=== PATIENT | male | born 1950 | race Hispanic/Latino ===

== ENCOUNTER 2017-03-11 13:44 | Emergency (ER) | payer OTHER ==
[2017-03-11 13:55] VITALS: BMI 25.1
[2017-03-11 13:56] VITALS: RESP 18; TEMP 98.3
[2017-03-11 14:14] VITALS: BP 110/89; PULSE 95
[2017-03-11 14:16] VITALS: O2SAT 96
--- NOTE | 2017-03-11 14:16 | C.PDOC ---
History Of Present Illness 67 y/o male presents to ED for evaluation after vomiting x1 time yesterday. Patient states yesterday he opened a can of pineapple juice that tasted acidic and was noted black on the inside of can. Patient denies abdominal pain, diarrhea, fever, chills. He has no weakness, visual disturbance, trouble swallowing, body aches or paralysis. He woke up this morning perfectly fine but came to ED to make sure everything is okay. No other complaints at this time. Time Seen by Provider: 03/11/17 14:06 Chief Complaint (Nursing): Abdominal Pain History Per: Patient History/Exam Limitations: no limitations Onset/Duration Of Symptoms: Days Current Symptoms Are (Timing): Still Present Context: Food Associated Symptoms: denies: Nausea, Vomiting, Diarrhea Past Medical History Reviewed: Historical Data, Nursing Documentation, Vital Signs Vital Signs: Last Vital Signs Temp 98.3 F 03/11/17 13:55 Pulse 95 H 03/11/17 14:11 Resp 18 03/11/17 14:11 BP 110/89 03/11/17 14:11 Pulse Ox 96 03/11/17 14:18 - Medical History PMH: HTN Family History: States: Unknown Family Hx - Social History Hx Alcohol Use: Yes Hx Substance Use: No - Immunization History Hx Tetanus Toxoid Vaccination: No Hx Influenza Vaccination: No Hx Pneumococcal Vaccination: No Review Of Systems Except As Marked, All Systems Reviewed And Found Negative. Constitutional: Negative for: Fever, Chills Gastrointestinal: Positive for: Vomiting. Negative for: Nausea, Abdominal Pain , Diarrhea Skin: Negative for: Rash Physical Exam - Physical Exam Appears: Non-toxic, No Acute Distress Skin: Normal Color, Warm Head: Atraumatic, Normacephalic Eye(s): bilateral: Normal Inspection, PERRL, EOMI Oral Mucosa: Moist, No Drooling Throat: Normal Neck: Normal, Normal ROM Chest: Symmetrical Cardiovascular: Rhythm Regular, No Murmur Respiratory: Normal Breath Sounds, No Rales, No Rhonchi, No Wheezing Gastrointestinal/Abdominal: Soft, No Tenderness, No Guarding, No Rebound Extremity: Normal ROM, Capillary Refill (<2 seconds) Neurological/Psych: Oriented x3, Normal Speech, Normal Cognition, Normal Cranial Nerves, Cerebellar Signs, Normal Motor, Normal Sensation, Normal Reflexes Gait: Steady ED Course And Treatment O2 Sat by Pulse Oximetry: 96 (ra) Disposition - Disposition Disposition: HOME/ ROUTINE Disposition Time: 14:25 Condition: STABLE Instructions: Food Poisoning (ED) - Clinical Impression Clinical Impression: Food poisoning - Scribe Statement The provider has reviewed the documentation as recorded by the Scribgood Reyes All medical record entries made by the Khurramibe were at my direction and personally dictated by me. I have reviewed the chart and agree that the record accurately reflects my personal performance of the history, physical exam, medical decision making, and the department course for this patient. I have also personally directed, reviewed, and agree with the discharge instructions and disposition.
== END 2017-03-11 14:28 | disposition home or self-care (01) ==
LOC: C.ER 13:44
DX: T62.91XA Toxic effect of unspecified noxious substance eaten as food, accidental (unintentional), initial encounter (principal)

== ENCOUNTER 2017-11-21 15:27 | Emergency (ER) | payer MEDICARE, OTHER ==
[2017-11-21 15:27] VITALS: BMI 25.1
--- NOTE | 2017-11-21 15:45 | C.PDOC ---
History Of Present Illness 67 year old male presents to the ER with a complaint of pain to the lower ribs after he fell 2 days ago. Patient states he was drinking his usual 6 pack a day when he stood up fast, felt dizziness, and fell back hitting his left lower ribs on the radiator. Patient presents today because the pain persists, reports he has a Hx of rib fractures in the past. Denies head injury, LOC, trouble breathing, abdominal pain, or dark urine. Time Seen by Provider: 11/21/17 15:38 Chief Complaint (Nursing): Back Pain History Per: Patient History/Exam Limitations: no limitations Onset/Duration Of Symptoms: Days Current Symptoms Are (Timing): Still Present Quality Of Discomfort: Unable To Describe Previous Symptoms: None Associated Symptoms: None Recent travel outside of the [place]: No Past Medical History Reviewed: Historical Data, Nursing Documentation, Vital Signs Vital Signs: Last Vital Signs Temp 98.1 F 11/21/17 15:30 Pulse 79 11/21/17 15:30 Resp 18 11/21/17 15:30 BP 158/81 H 11/21/17 15:30 Pulse Ox 98 11/21/17 15:53 - Medical History PMH: HTN Family History: States: Unknown Family Hx - Social History Hx Alcohol Use: No Hx Substance Use: No - Immunization History Hx Tetanus Toxoid Vaccination: No Hx Influenza Vaccination: No Hx Pneumococcal Vaccination: No Review Of Systems Respiratory: Negative for: Other (Difficulty breathing) Gastrointestinal: Negative for: Abdominal Pain Genitourinary: Negative for: Other (Dark urine) Musculoskeletal: Positive for: Other (Left lower rib pain) Neurological: Negative for: Weakness, Numbness, Other (LOC) Physical Exam - Physical Exam Appears: Non-toxic, No Acute Distress Skin: Normal Color, Warm, Dry Head: Atraumatic, Normacephalic Eye(s): bilateral: Normal Inspection Chest: Tenderness (Left lower rib posterior axillary line), No Ecchymosis, No Other (Swelling) Cardiovascular: Rhythm Regular Respiratory: Normal Breath Sounds, No Rales, No Rhonchi, No Wheezing Gastrointestinal/Abdominal: Bowel Sounds (Active), Soft, No Tenderness Back: No CVA Tenderness Neurological/Psych: Oriented x3, Normal Speech ED Course And Treatment - Laboratory Results Interpretation Of Abnormal: Urine normal O2 Sat by Pulse Oximetry: 98 (Room air) Pulse Ox Interpretation: Normal - Other Rad Left ribs X-Ray: Interpreted by Me Interpretation: No evidence of fracture or pneumothorax, no pleural effusion Progress Note: Urinalysis and rib x-ray ordered. Disposition Counseled Patient/Family Regarding: Studies Performed, Diagnosis, Need For Followup - Disposition Referrals: [facility] [Outside] Disposition: HOME/ ROUTINE Disposition Time: 16:10 Condition: STABLE Instructions: Bruised Rib (DC) Forms: [employer] (Czech) - Clinical Impression Clinical Impression: Contusion of back - Scribe Statement The provider has reviewed the documentation as recorded by the Scribe Robert Baxter All medical record entries made by the Scribe were at my direction and personally dictated by me. I have reviewed the chart and agree that the record accurately reflects my personal performance of the history, physical exam, medical decision making, and the department course for this patient. I have also personally directed, reviewed, and agree with the discharge instructions and disposition.
[2017-11-21 16:03] LABS: URINE BILIRUBIN NEGATIVE (NEGATIVE); URINE BLOOD NEGATIVE (NEGATIVE); URINE CLARITY Clear (Clear); URINE COLOR Colorless (YELLOW); URINE GLUCOSE (UA) NORMAL (Normal); URINE LEUKOCYTE ESTERASE NEG Leu/uL (Negative); URINE PROTEIN NEGATIVE (NEGATIVE); URINE UROBILINOGEN NORMAL mg/dL (0.2-1.0)
[2017-11-21 16:30] VITALS: BP 140/88; PULSE 95; RESP 15; TEMP 97.7; O2SAT 96
--- NOTE | 2017-11-21 16:38 | RAD ---
PROCEDURE: Radiographs of the Chest and Left Ribs. HISTORY: fall with back injury COMPARISON: 10/16/2016. TECHNIQUE: Frontal radiograph of the chest and multiple oblique radiographs of the left ribs were obtained. FINDINGS: LEFT RIBS: No acute fracture or focal lesion visualized. LUNGS: The lungs are well inflated and clear. PLEURA: No pneumothorax or pleural fluid. CARDIOVASCULAR: Normal sized heart. No pulmonary vascular congestion. OTHER FINDINGS: None. IMPRESSION: No acute rib fracture. Clear lungs.
== END 2017-11-21 16:30 | disposition home or self-care (01) ==
LOC: C.ER 15:27
DX: S20.222A Contusion of left back wall of thorax, initial encounter (principal); W18.30XA Fall on same level, unspecified, initial encounter

== ENCOUNTER 2017-12-21 11:39 | Emergency (ER) | payer MEDICARE ==
[2017-12-21 11:40] VITALS: BMI 25.1
[2017-12-21 12:00] VITALS: BP 135/81; PULSE 107; RESP 18; TEMP 98.2; O2SAT 97
--- NOTE | 2017-12-21 12:33 | C.PDOC ---
History Of Present Illness 67 y/o male presents to the ED for evaluation s/p fall 2 days ago. Patient states "my boyfriend told me to get checked out." Patient states he was going down the stairs, misstepped and fell onto outstretched right wrist, and sustained an injury to his left periorbital /facial area. Patient denies loss of consciousness, nausea, and vomiting. Patient denies wrist/hand pain, stating "I'm moving it around fine." Denies vision change. Patient states,"I feel fine! " S/P FALL 2 DAYS AGO "MY BOYFRIEND TOLD ME TO GET CHECKED OUT". PS GOING DOWN STAIRS, MISSTEPPED AND FELL FOOSH R WRIST, L PERIORB/FACIAL INJURY. NO LOC, NV. DENIES WRIST/HAND PAIN "IM MOVING IT AROUND FINE". DENIES VISION CHANGE. "I FEEL FINE!" EXAM NAD NONTOXIC HEENT +L PERIORB HEMATOMA NO SWELL NONTEND. EOMI, NO VISION ABN. EYES CLEAR EXT R WRIST NO SWELL DEFORM. NONTEND. AROM WO DIFF SKIN INTACT NEURO INTACT MDM PT OFFERED XRAYS BUT REFUSING. "I JUST WANT TO GO I'M FINE" - HPI Time Seen by Provider: 12/21/17 12:12 Chief Complaint (Nursing): Upper Extremity Problem/Injury History Per: Patient History/Exam Limitations: no limitations Onset/Duration Of Symptoms: Days (2) Additional History Per: Patient Past Medical History Reviewed: Historical Data, Nursing Documentation, Vital Signs Vital Signs: Last Vital Signs Temp 98.2 F 12/21/17 11:56 Pulse 107 H 12/21/17 11:56 Resp 18 12/21/17 11:56 BP 135/81 12/21/17 11:56 Pulse Ox 97 12/21/17 22:43 - Medical History PMH: HTN Surgical History: No Surg Hx Family History: States: Unknown Family Hx - Social History Hx Alcohol Use: No Hx Substance Use: No - Immunization History Hx Tetanus Toxoid Vaccination: No Hx Influenza Vaccination: No Hx Pneumococcal Vaccination: No Review Of Systems Eyes: Negative for: Vision Change ENT: Positive for: Other (injury to left periorbital/facial area ) Gastrointestinal: Negative for: Nausea, Vomiting Skin: Negative for: Other (LOC ) Physical Exam - Physical Exam Appears: Non-toxic, No Acute Distress Skin: Normal Color, Warm, Dry Head: Atraumatic, Normacephalic Eye(s): bilateral: PERRL, EOMI, right: Normal Inspection, left: Other ( periorbital hematoma. no swelling. nontender. no vision abnormality. eyes clear ) Oral Mucosa: Moist Neck: Supple Chest: Symmetrical, No Deformity, No Tenderness Cardiovascular: Rhythm Regular, No Murmur Extremity: Normal ROM, No Tenderness (right wrist ), Capillary Refill (less than 2 seconds ), No Deformity (right wrist ), No Swelling (right wrist ) Pulses: Right Radial: Normal Neurological/Psych: Oriented x3, Normal Speech, Normal Cognition, Normal Motor, Normal Sensation Gait: Steady ED Course And Treatment O2 Sat by Pulse Oximetry: 97 (on RA ) Pulse Ox Interpretation: Normal Medical Decision Making Medical Decision Making: MDM PT OFFERED XRAYS BUT REFUSING. "I JUST WANT TO GO I'M FINE" Disposition Counseled Patient/Family Regarding: Diagnosis, Need For Followup - Disposition Referrals: [facility] [Outside] [facility] [Outside] Disposition: HOME/ ROUTINE Disposition Time: 12:30 Condition: GOOD Additional Instructions: ICE TO AFFECTED AREA NEEDED. TAKE MOTRIN AND/OR TYLENOL DIRECTED FOR PAIN. Instructions: Wrist Sprain (DC), Contusion (DC) Forms: [employer] (Icelandic) - Clinical Impression Clinical Impression: Facial contusion, Wrist sprain - Scribe Statement The provider has reviewed the documentation as recorded by the Scribe (Darline Turner) Provider Attestation: All medical record entries made by the Scribe were at my direction and personally dictated by me. I have reviewed the chart and agree that the record accurately reflects my personal performance of the history, physical exam, medical decision making, and the department course for this patient. I have also personally directed, reviewed, and agree with the discharge instructions and disposition.
== END 2017-12-21 12:37 | disposition home or self-care (01) ==
LOC: C.ER 11:39
DX: S00.83XA Contusion of other part of head, initial encounter (principal); S63.501A Unspecified sprain of right wrist, initial encounter; W10.9XXA Fall (on) (from) unspecified stairs and steps, initial encounter; I10 Essential (primary) hypertension